=== PATIENT | female | born 1955 | race Caucasian/White ===

== ENCOUNTER → 2017-12-20 10:19 | Outpatient (CLI) | payer OTHER, SELFPAY ==
--- NOTE | 2017-12-20 10:20 | BI_ITS ---
MAMMOGRAPHY - BILATERAL SCREENING REASON FOR EXAM: Female, 62 years old. Routine annual screening examination. PERTINENT HISTORY: Mother with breast cancer. Remote right stereotactic breast biopsy and left excisional breast biopsy. TECHNIQUE: Digital bilateral breast luis miguel (3D mammographic acquisition) in the CC and MLO projections. 2-D mediolateral oblique (MLO) and craniocaudad (CC) views of both breasts were obtained. CAD: Full Field Digital Mammography with Computer Added Detection was performed. COMPARISON: Comparison is made with prior study dated December 06, 2016. FINDINGS: Breast Composition: There are scattered areas of fibroglandular density. There are no dominant masses or suspicious calcifications. A tissue marker is seen in the upper slightly medial aspect of the right breast. Stable 8.4 mm nodule at the biopsy site. Stable small benign-appearing bilateral axillary lymph nodes. No other significant abnormalities are identified. There has been no significant change since the prior study. BI/SCREENING MAMM (CAD), BILAT IMPRESSION: Stable bilateral screening mammogram. Yearly follow-up mammogram recommended. (A) ASSESSMENT CATEGORY: BIRADS Category 2: Benign. A letter regarding these results will be sent to the patient by the facility within 30 days. Approximately 10% of breast cancers are not detected by mammography. A normal mammogram should not delay biopsy of a clinically suspicious abnormality. [id number] Electronically Signed: Asaf Epstein MD at 12:36 EDT Tel [phone], Service support ,
== END ==
PROVIDERS: Family Provider Family Medicine; PCP Family Medicine; Referring Provider Obstetrics & Gynecology; Visit Provider Obstetrics & Gynecology
DX: Z12.31 Encounter for screening mammogram for malignant neoplasm of breast (principal)
CPT/HCPCS: 77063; 77067

== ENCOUNTER 2021-06-15 10:20 | Outpatient (CLI) | payer OTHER, SELFPAY ==
[2021-06-15 11:10] LABS: Microalbumin,Random Urine 17.6 mg/L (NO RANGE EST.); Microalbumin:Creatinine Ratio 6.1 mg/g CRE (<30 mg/g CRE)
[2021-06-15 11:23] LABS: Cholesterol 184 mg/dL (200); High Density Lipoprotein 41 mg/dL; Triglycerides 189 mg/dL; Very Low Density Lipoprotein 38 mg/dL (5-40)
== END 2021-06-15 23:59 | disposition home or self-care (01) ==
LOC: LAB 10:22
PROVIDERS: PCP Family Medicine; Referring Provider Physician Assistant; Visit Provider Physician Assistant
DX: E11.9 Type 2 diabetes mellitus without complications (principal)
CPT/HCPCS: 36415; 80061; 82043; 82570

== ENCOUNTER 2021-06-29 09:42 | Outpatient (CLI) | payer OTHER, SELFPAY ==
[2021-06-29 11:38] LABS: Potassium 3.1 mmol/L (3.5-5.1)
== END 2021-06-29 23:59 | disposition home or self-care (01) ==
LOC: LAB 09:43
PROVIDERS: PCP Family Medicine; Visit Provider Family Medicine
DX: E87.6 Hypokalemia (principal)
CPT/HCPCS: 36415; 84132

== ENCOUNTER 2021-07-20 11:05 | Day surgery (SDC) | payer OTHER, SELFPAY ==
--- NOTE | 2021-06-15 10:03 | EKG12_ITS ---
Test Reason : PREOP Blood Pressure : / mmHG Vent. Rate : 066 BPM Atrial Rate : 066 BPM P-R Int : 154 ms QRS Dur : 082 ms QT Int : 418 ms P-R-T Axes : 051 -06 058 degrees QTc Int : 438 ms Normal sinus rhythm Normal ECG Confirmed by KAUSHAL SORIANO, FATUMA ([id number]), editor farm journal GENARO BARON ([id number]) on 06/16/2021 10:43:22 AM Referred By: Brien Herrera Confirmed By:FATUMA EASLEY MD
[2021-06-15 10:46] LABS: Hematocrit 42.7 % (37-47); Hemoglobin 14.8 g/dL (12.0-15.0); Mean Corp Hgb Conc 34.7 g/dL (32-36); Mean Corpuscular Hgb 31.1 pg (27.0-32.0); Mean Corpuscular Volume 89.7 fL (81-99); Mean Platelet Vol. 8.9 fl (6.2-12.0); Platelet Count 316 K/mm3 (150-450); RBC Distribution Width CV 11.7 % (11.6-14.6); RBC Distribution Width SD 38.2 fl (35.1-43.9); Red Blood Count 4.76 M/mm3 (4.2-5.4)
[2021-06-15 11:17] LABS: Anion Gap 8 (5-15); BUN 12 mg/dL (7-18); BUN/Creat Ratio 11.8 RATIO (10-20); Calcium,Total 8.3 mg/dL (8.5-10.1); Chloride 99 mmol/L (98-107); Creatinine, Serum 1.02 mg/dL (0.55-1.02); EST Glomerular Filtration Rate 58 mL/min (>60); Est Glom Filt Rate - Afr Amer 70 mL/min (>60); Glucose 157 mg/dL (74-106); Potassium 3.3 mmol/L (3.5-5.1); Sodium Level 138 mmol/L (136-145)
[2021-06-15 11:27] LABS: Hemoglobin A1c 6.8 % (3.8-5.6)
[2021-06-15 11:32] LABS: Thyroid Stim Hormone (TSH) 0.83 uIU/mL (0.358-3.74)
[2021-07-14 12:38] LABS: Hematocrit 42.5 % (37-47); Hemoglobin 14.2 g/dL (12.0-15.0); Mean Corp Hgb Conc 33.4 g/dL (32-36); Mean Corpuscular Hgb 30.5 pg (27.0-32.0); Mean Corpuscular Volume 91.2 fL (81-99); Mean Platelet Vol. 9.2 fl (6.2-12.0); Platelet Count 297 K/mm3 (150-450); RBC Distribution Width CV 11.9 % (11.6-14.6); RBC Distribution Width SD 40.4 fl (35.1-43.9); Red Blood Count 4.66 M/mm3 (4.2-5.4); White Blood Count 8.7 K/mm3 (4.4-11.0)
[2021-07-14 12:53] LABS: Anion Gap 6 (5-15); BUN 14 mg/dL (7-18); BUN/Creat Ratio 13.1 RATIO (10-20); Calcium,Total 8.6 mg/dL (8.5-10.1); Chloride 100 mmol/L (98-107); Creatinine, Serum 1.07 mg/dL (0.55-1.02); EST Glomerular Filtration Rate 55 mL/min (>60); Est Glom Filt Rate - Afr Amer 66 mL/min (>60); Glucose 222 mg/dL (74-106); Potassium 3.8 mmol/L (3.5-5.1); Sodium Level 136 mmol/L (136-145)
[2021-07-14 14:07] LABS: Vitamin D,25 Hydroxy 74.6 ng/mL
[2021-07-20] VITALS (7 sets, daily range): BP systolic 100–126; BP diastolic 46–80; PULSE 66–71; RESP 16–17; TEMP 36.3–36.8; O2SAT 92–99; BMI 35.5
[2021-07-20] MEDS: Lactated Ringers 1,000 ML 15 ML IV (11:36)
[2021-07-20 11:46] LABS: Bedside Glucose 157 mg/dL (74-106)
[2021-07-20] MEDS: Clindamycin 600 MG/50 ML BAG 100 MG IV (12:15)
[2021-07-20] MEDS: Lidocaine 1% /Epi 1:100 (20ml) 20 ML Vial (13:24)
[2021-07-20] MEDS: Epinephrine (1 mg/ml) 1 MG/ML VIAL (13:24)
--- NOTE | 2021-07-20 14:20 | PCM.OPRPT ---
Report of Operation Date of Procedure: 07/20/21 Pre-Operative Diagnosis: Subacromial impingement syndrome, OA distal clavicle, rotator cuff tear, possible interstitial tear biceps tendon right shoulder Post-Operative Diagnosis: same with no biceps tendon tear Surgery/Procedure Performed:: Arthroscopic subacromial decompression, distal claviculectomy, RCR right shoulder Surgeon: Brien Herrera editorial director: Jamie Ibarra Type of Anesthesia: General/Regional Anesthesiologist: Arron Howell Admkatherine VTE Documentation VTE Present on Admission: No VTE Mechan Device Prophylaxis: SCD's VTE Pharm Prophylaxis ordered?: No Reason prophylaxis not ordered:: Treatment Not Indicated
[2021-07-20 14:55] LABS: Bedside Glucose 165 mg/dL (74-106)
== END 2021-07-20 16:38 | disposition home or self-care (01) ==
LOC: SDC 11:06 → AC 11:10
PROVIDERS: Anesthesiology; PCP Family Medicine; Referring Provider Orthopaedic Surgery; Visit Provider Orthopaedic Surgery
PROC: (CPT 29827; principal; 2021-07-20 12:25)
DX: M75.100 Unspecified rotator cuff tear or rupture of unspecified shoulder, not specified as traumatic (principal); E11.9 Type 2 diabetes mellitus without complications; M19.019 Primary osteoarthritis, unspecified shoulder; M75.41 Impingement syndrome of right shoulder; E78.00 Pure hypercholesterolemia, unspecified; I10 Essential (primary) hypertension; Z90.711 Acquired absence of uterus with remaining cervical stump; S46.011A Strain of muscle(s) and tendon(s) of the rotator cuff of right shoulder, initial encounter
CPT/HCPCS: 29824; 29826; 01630; 36415; 80048; 82306; 82962; 83036; 84443; 85027; 93005; J7120; J2405

== ENCOUNTER 2023-08-14 14:26 | Emergency (ER) | payer MEDICARE, OTHER, SELFPAY ==
[2023-08-14 14:27] VITALS: BP 150/99; PULSE 72; RESP 18; TEMP 36.3; O2SAT 94; BMI 35.6
[2023-08-14] MEDS: 0.9% Normal Saline (1000mL) 1,000 ML 1000 ML IV (14:51)
[2023-08-14 15:01] LABS: Absolute Lymphocyte Count 1.62 X10^3/uL (0.83-4.51); Absolute Neutrophil Count 4.5 X10^3/uL (2.0-7.7); Basophil# 0.05 X10^3/uL; Basophil% 0.7 % (0-1); Eosinophils% 4.1 % (0-5); Hematocrit 44.1 % (37-47); Lymphocyte # 1.62 X10^3/ul (0.83-4.51); Mean Corpuscular Hgb 29.4 pg (27.0-32.0); Mean Corpuscular Volume 86.3 fL (81-99); Mean Platelet Vol. 8.8 fl (6.2-12.0); Monocyte% 12.2 % (0-10); NRBC Flagged by Analyzer 0 % (0-5); Neutrophil # 4.48 X10^3/uL (2.7-7.7); Neutrophil % 60.7 % (47-70); Platelet Count 276 K/mm3 (150-450); RBC Distribution Width SD 38.1 fl (35.1-43.9); Red Blood Count 5.11 M/mm3 (4.2-5.4); White Blood Count 7.4 K/mm3 (4.4-11.0)
[2023-08-14 15:24] LABS: Anion Gap 11 (5-15); BUN 10 mg/dL (7-18); BUN/Creat Ratio 10.1 RATIO (10-20); Calcium,Total 8.4 mg/dL (8.5-10.1); Chloride 102 mmol/L (98-107); Creatinine, Serum 0.99 mg/dL (0.55-1.02); EST Glomerular Filtration Rate 59 mL/min (>60); Est Glom Filt Rate - Afr Amer 72 mL/min (>60); Estimated Creatinine Clearance 62.17 ml/min; Glucose 159 mg/dL (74-106); Lipase 65 U/L (13-75); Potassium 3.1 mmol/L (3.5-5.1); Sodium Level 137 mmol/L (136-145)
[2023-08-14] MEDS: Potassium Chloride Oral Tablet 20 MEQ 40 MEQ PO (15:39)
[2023-08-14 15:41] LABS: Bacteria 0 SEEN /hpf (None Seen); Mucous, Urine 0 SEEN /hpf (<or=2+); Red Blood Cells-Urine 0 SEEN /hpf (0-5)
[2023-08-14 15:42] LABS: Color, Urine Yellow (Yellow); Glucose, Dipstick Normal (Normal); Ketone-Dipstick Negative (Negative); Leukocyte Esterase-Dipstick 500 /ul (Negative); Nitrite-Dipstick Negative (Negative); Occult Blood-Urine Negative /ul (Negative); Protein-Dipstick 15 mg/dl (Negative); Specific Gravity, Urine 1.015 (1.002-1.030); Urine Bilirubin Dipstick Negative (Negative); Urine Clarity Clear (Clear); Urine Urobilinogen Normal (Normal)
[2023-08-14 15:51] LABS: Squamous Epithelial Cells - UA 0-5 SEEN /hpf (5-10); White Blood Cells 5-10 SEEN /hpf (0-5)
[2023-08-14 16:26] VITALS: BP 141/96; PULSE 57; RESP 18; TEMP 36.9; O2SAT 94
--- NOTE | 2023-08-14 16:44 | EDS_ITS ---
HPI HPI - GI History of Present Illness Chief Complaint: Nausea/Vomiting/Diarrhea Narrative Narrative: 67-year-old female presenting with nausea, vomiting, diarrhea. This started on Tuesday. Patient states she had some bad potato salad on Tuesday [facility] and noted before she could eat food at the [facility] on Tuesday she started to have nausea, vomiting, diarrhea. She has had a low-grade fever as high as 100.2. Denies black or bloody stools. She has crampy abdominal pain but nothing focal. She has been able to eat foods now for the last few days but she is concerned that she continues to have diarrhea. She was seen before the weekend diagnosed with a UTI and started on Keflex because she was having urinary symptoms. She states he is have resolved. Patient has not had any exotic travel or other exotic food. Denies sick contacts. [facility] Medical History Wears glasses Cancer Thyroid disease Diabetes Arthritis High cholesterol Migraine headache Dietary restriction History of IBS Non-smoker Leg cramps History of pain when walking History of stress test Hypertension Home Medications ?Medication ?Instructions ?Recorded ?Last Taken ?Type ascorbic acid (vitamin C) 500 mg 500 mg PO DAILY 06/10/21 Unknown History tablet,extended release (Vitamin C ER) cholecalciferol (vitamin D3) 50 50 mcg PO BID 06/10/21 Unknown History mcg (2,000 unit) capsule (Vitamin D3) glimepiride 2 mg tablet 2 mg PO DAILY 06/10/21 Unknown History levothyroxine 100 mcg tablet 100 mcg PO DAILY 06/10/21 07/20/21 History lkjovgtq-mee-jhslr ac 400 1 tab PO DAILY 06/10/21 Unknown History mcg-calcium carb 500 mg-vit K1 20 mcg tablet (Women's 50 Plus Daily Formula) sertraline 25 mg tablet 25 mg PO DAILY 06/10/21 Unknown History simvastatin 40 mg tablet 40 mg PO QHS 06/10/21 Unknown History valsartan 80 1 tab PO DAILY 06/10/21 Unknown History mg-hydrochlorothiazide 12.5 mg tablet potassium chloride 20 mEq 15 meq PO BID 07/13/21 Unknown History tablet,extended release(part/cryst) ondansetron 4 mg disintegrating 4 mg PO Q8H PRN PRN Nausea #20 tabs 08/14/23 Unknown Rx tablet Allergy/AdvReac Type Severity Reaction Status Date / Time lisinopril AdvReac COUGH Verified 07/20/21 11:24 metformin AdvReac Vomiting Verified 07/20/21 11:24 Surgical History Hx of breast surgery Hx of breast biopsy Hx of colonoscopy History of lobectomy of thyroid Hx of tonsillectomy History of partial hysterectomy Social History Smoking Status: Never smoker ROS ROS ED Constitutional Constitutional ED: Reports fever(s); Denies chills or sweats Eyes Eyes: Denies blurry vision or change in vision ENT ENT ED: Denies ear pain or sore throat Cardiovascular Cardiovascular: Denies chest pain, palpitations or racing heartbeat Respiratory/Chest Respiratory/Chest: Denies cough, dyspnea or sputum Gastrointestinal Gastrointestinal: Reports diarrhea, nausea and vomiting; Denies abdominal pain or constipation Genitourinary Genitourinary ED: Denies dysuria, hematuria or urinary frequency Musculoskeletal Musculoskeletal: Denies arthralgias, myalgias or neck pain Integumentary Denies abscess, Abrasions or rash Neurologic Neurologic: Denies headache(s), paresthesias or weakness Psychiatric Psychiatric: Denies anxiety, depression, suicidal ideation or suicidal thoughts Endocrine Endocrinology: Denies polydipsia or polyuria EXAM Physical Exam Const Vital Signs: 08/14/23 14:27 08/14/23 16:26 Temperature 97.4 F L 98.5 F Temperature Source Temporal Oral Pulse Rate 72 57 L Respiratory Rate 18 18 Blood Pressure 150/99 H 141/96 H Blood Pressure Mean 116 111 Pulse Ox 94 94 Oxygen Delivery Method Room Air Room Air Positive well nourished General Appearance ED: NAD; Negative for pallor HEENT Reports moist mucous membranes normocephalic and atraumatic Eyes PERRL and EOMs intact bilaterally Resp normal respiratory effort Cardio regular rate and regular rhythm GI non-tender, non-distended and no masses Back/Spine no CVA tenderness Neuro CN's II-XII intact bilaterally, moves all extremities and no sensory deficits noted Sensorium / Orientation: alert Motor Exam: strength 5/5 throughout Psych mental status grossly normal and thought process normal Skin no wounds General Skin Exam: Negative for jaundice or pallor MDM MDM MDM Narrative Medical decision making narrative: Patient presenting with continued diarrhea. She started with nausea and vomiting earlier this week and believes it was her eating bad potato salad. Symptoms started on Tuesday roughly 24 hours later. Patient had a fever of 100.2 Fahrenheit which is now resolved. Her nausea and vomiting has resolved and she has been eating plenty of food but still has continued diarrhea. She was seen in urgent care for UTI symptoms and started on Keflex and her urine culture came back as normal urogenital savi. Patient does not have any symptoms currently of UTI. Differential includes colitis, diverticulitis, UTI, pyelonephritis, dehydration, anemia, electro normalities. CBC was obtained to assess white blood cell count, hemoglobin and platelets. BMP to assess renal function, electrolytes, glucose. Urinalysis to assess for UTI. CBC is unremarkable. BMP shows GFR 59 creatinine 1.99 and BUN of 10. Patient was given IV fluids. Urinalysis shows 500 leukocyte esterase and 5-10 white blood cells with 0-5 squamous epithelial cells. Patient currently on Keflex for UTI. Potassium was low at 3.1 and she was orally repleted. I ordered stool studies but the patient was not able to have a bowel movement. Given that her lab work was normal I feel she is safe to be safely discharged. I gave her prescription for Zofran and a list of high potassium foods. Return precautions were discussed. Impression: 1. Diarrhea 2. Hypokalemia Lab Data Attestation: I reviewed the patient's lab results. Labs: Laboratory Results - last 24 hr 08/14/23 08/14/23 14:47 15:34 WBC 7.4 RBC 5.11 Hgb 15.0 Hct 44.1 MCV 86.3 MCH 29.4 MCHC 34.0 RDW Std Deviation 38.1 RDW Coeff of [place] 12.0 Plt Count 276 MPV 8.8 Immature Gran % (Auto) 0.300 Neut % (Auto) 60.7 Lymph % (Auto) 22.0 [place] % (Auto) 12.2 H Eos % (Auto) 4.1 Baso % (Auto) 0.7 Absolute Neuts (auto) 4.5 Absolute Lymphs (auto) 1.62 Nucleated RBC % 0 Sodium 137 Potassium 3.1 L Chloride 102 Carbon Dioxide 24.0 Anion Gap 11 BUN 10 Creatinine 0.99 Estim Creat Clear Calc 62.17 Est GFR (MDRD) Af Amer 72 Est GFR (MDRD) Non-Af 59 L BUN/Creatinine Ratio 10.1 Glucose 159 H Calcium 8.4 L Lipase 65 Urine Color Yellow Urine Clarity Clear Urine pH 6.0 Ur Specific [place] 1.015 Urine Protein 15 H Urine Glucose (UA) Normal Urine Ketones Negative Urine Occult Blood Negative Urine Nitrite Negative Urine Bilirubin Negative Urine Urobilinogen Normal Ur Leukocyte Esterase 500 H Urine RBC 0 SEEN Urine WBC 5-10 SEEN Ur Squamous Epith Cells 0-5 SEEN Urine Bacteria 0 SEEN Urine Mucus 0 SEEN Discharge Plan Triage Chief Complaint: Nausea/Vomiting/Diarrhea ED Provider: Maxi Vazquez Dx/Rx/DC Orders Instructions: ED Hypokalemia, ED Potassium-Rich Foods, ED Gastroenteritis, Viral (Adult) Prescriptions: New ondansetron 4 mg tablet,disintegrating 4 mg PO Q8H PRN PRN (Reason: Nausea) Qty: 20 0RF No Action simvastatin 40 mg Tablet 40 mg PO QHS glimepiride 2 mg Tablet 2 mg PO DAILY valsartan-hydrochlorothiazide 80-12.5 mg Tablet 1 tab PO DAILY levothyroxine 100 mcg Tablet 100 mcg PO DAILY sertraline 25 mg Tablet 25 mg PO DAILY ascorbic acid (vitamin C) [Vitamin C] 500 mg Tablet Extended Release 500 mg PO DAILY cholecalciferol (vitamin D3) [Vitamin D3] 50 mcg (2,000 unit) Capsule 50 mcg PO BID Women's 50 Plus Daily Formula 400 mcg-500 mg calcium-20 mcg Tablet 1 tab PO DAILY potassium chloride 20 mEq tablet,ER particles/crystals 15 meq PO BID Patient Comments: Take 1 tablet by mouth once daily. Stand Alone Forms: ED Work / School Excuse Primary Care Provider: Yordy Do Referrals: Yordy Do MD [Primary Care Provider] - Print Language: Latvian Disposition Disposition: Home, Self Care
[2023-08-14 17:03] VITALS: BP 138/74; PULSE 67; RESP 18; TEMP 36.1; O2SAT 99
== END 2023-08-14 17:04 | disposition home or self-care (01) ==
PROVIDERS: Emergency Provider Student in an Organized Health Care Education/Training Program; PCP Family Medicine; Visit Provider Student in an Organized Health Care Education/Training Program
DX: R19.7 Diarrhea, unspecified (principal); E11.9 Type 2 diabetes mellitus without complications; R11.2 Nausea with vomiting, unspecified; E87.6 Hypokalemia; E78.00 Pure hypercholesterolemia, unspecified; I10 Essential (primary) hypertension; Z79.84 Long term (current) use of oral hypoglycemic drugs; Z90.710 Acquired absence of both cervix and uterus
CPT/HCPCS: 80048; 81001; 83690; 85025; 96360; 96361; 99283; J7030; A4216

== ENCOUNTER 2024-09-28 10:30 | Outpatient (RCR) | payer OTHER, MEDICARE, SELFPAY ==
--- NOTE | 2024-08-31 06:44 | HP.OTEVAL_ITS ---
Patient's Visit Information Visit Information Visit Information: LUC HAZEL is a 68 year old F, referred to Occupational Therapy by Dr. Shashi Daugherty MD, with a diagnosis of right LF non displaced prox phal. Date of Evaluation: 08/30/24 Occupational Therapist: Georgiana Calderón, KEELY/Jose, CHT Subjective Subjective: This 68 year old female was seen for OT eval with dx of right nondisplaced fx of proximal phalanx right LF. pt states she suffered a fall while at work on June 22 2024. Pt states she went to ER and was placed in splint- follow up with Dr. Daugherty and placed in cast about June 24-2024. pt states she was in cast for 6 weeks and this was removed. Pt states she stared Physical therapy July 23 and did not make gains in her functional fist. pt states she is frustrated with her limited ability to use her right hand with all ADLs and IADLs. pt is right hand- pt would like to get more ROM and strength of right hand to use with all her ADLs. Pain right hand: Current Pain Intensity: 0 Pain Intensity Range: 4 ROM MP: right IF ROM Comments: right MCP IF 70 MF 60 RF 50 LF 40 Left MCP IF 90 MF 90 RF 80 LF 85 right PIP IF 90 MF 55 RF 50 LF 45 Left PIP IF 95 MF 95 RF 95 LF 95 right DIP IF 60 MF 20 RF 10 LF 0 Left DIP IF 60 MF 70 RF 70 LF 60 pt unable to form composite fist at this time. Strength Division Sales Manager: right 15# left 40# Lateral Pinch: right 4# left 6# Tripod Pinch: right unable left 4# Edema PIP: right MF 6.5 left 6.0 Sensation Sensation Comments: denies In-Hand Manipulation Finger to Palm Translation: Unable - Right and Normal - Left Palm to Finger Translation: Unable - Right and Normal - Left Goals Goal:: pt will demo a increase in right machine plug shaper strength to 40# or greater to increase pts IND with ADLs by d/c Goal:: pt will demo the ability to form a composite fist to hold objects of different size, coins and release IND to increase pts ind. with ADLs by d.c Goal:: pt will report no pain greater than 2/10 with use of right dominate hand with ADLS by d/c Goal:: pt will demo the ability to pickers material handlers 10 coins and hold without dropping by d.c Goal:: pt will demo a reduction in swelling by .5 cm Goal:: Pt will demo understanding of joint protection and ergonomics when p erforming BADLs and IADLs by d/c Pt will demo understanding of adaptive Equipment use to decrease stress on joints to allow pt to perform BADSL and IADLS at LEV level. Rehabilitation General Assessment: pt demo with limited right composite fist limiting use of right dominate hand with ADLs and IADL.s pt would benefit from skilled OT servic es 2-3 x week for 16 weeks to return pt to functional use of right hand. Today therapist added PROM. place and hold edema ( contrast bath)- pt was given handouts and demo understanding of POC and agree to POC. Rehabilitation Potential: Good Anticipated Interventions Anticipated Interventions: A/AAROM/PROM, Strengthening, Edema Control, Triggerpoint Release, Modalities, Orthoses, Joint Protection/Energy Conservation, Ergonomic Education, Education re assistive Equipment, Education re Diagnosis and Home Program Visit Plan Frequency: 2-3x /Week Duration: 2 Months TEXT: Thank you for the opportunity to evaluate your patient. For Medicare and Medicare HMO plans, please review the plan of care and approve it. It will need to be FAXED BACK to us at [phone] for Medicare purposes. Please let me know if there are questions or concerns regarding this plan of care. Physician Signature: Date:
--- NOTE | 2024-12-11 11:40 | HP.OT.NRP ---
Patient Information Patient Information: LUC HAZEL was seen in my office for initial evaluation on 08/30/24. The following Plan of Care was established for this patient: POC Established Initial Frequency: 2-3x /Week Initial Duration: 2 Months Plan: cont 2x week for 3 weeks 6 more visits Anticipated Interventions Anticipated Interventions: A/AAROM/PROM, Strengthening, Edema Control, Triggerpoint Release, Modalities, Orthoses, Joint Protection/Energy Conservation, Ergonomic Education, Education re assistive Equipment, Education re Diagnosis and Home Program Last Seen Last Seen: This patient was last seen in our office 09/28/24. Pertinent comments regarding their Occupational therapy will appear below: no further apts have been scheduled and due to time lapse in services pt is d/c at this time. At this point I will be discontinuing this patient from occupational therapy. I would be happy to see this patient again in the future if found appropriate by the physician. Thank you! Georgiana Calderón, OTR/L, CHT
== END 2024-09-28 19:00 | disposition home or self-care (01) ==
LOC: OT 10:30
PROVIDERS: PCP Family Medicine; Referring Provider Specialist; Visit Provider Specialist
DX: S62.646D Nondisplaced fracture of proximal phalanx of right little finger, subsequent encounter for fracture with routine healing (principal)
CPT/HCPCS: 97110; 97140; 97166; 97530

== ENCOUNTER → 2025-01-25 | Outpatient (CLI) | payer MEDICARE, OTHER, SELFPAY ==
--- NOTE | 2025-01-25 08:41 | EKG12_ITS ---
Test Reason : PREOP Blood Pressure : */* mmHG Vent. Rate : 57 BPM Atrial Rate : 57 BPM P-R Int : 144 ms QRS Dur : 82 ms QT Int : 438 ms P-R-T Axes : 26 4 51 degrees QTcB Int : 426 ms Sinus bradycardia Otherwise normal ECG When compared with ECG of 15-Jun-2021 10:10, No significant change was found Confirmed by Brien Alan ([id number]), editorial manager JANETTE MUELLER ([id number]) on 01/28/2025 1:08:35 PM Referred By: Shashi Daugherty Confirmed By: Brien Alan
== END | disposition home or self-care (01) ==
LOC: PSN 08:38
PROVIDERS: PCP Family Medicine; Referring Provider Specialist; Visit Provider Specialist
DX: Z01.810 Encounter for preprocedural cardiovascular examination (principal); Z01.818 Encounter for other preprocedural examination
CPT/HCPCS: 93005

== ENCOUNTER → 2025-02-05 | Outpatient (CLI) | payer MEDICARE, OTHER, SELFPAY ==
[2025-02-05 10:48] LABS: Hematocrit 41.6 % (37-47); Hemoglobin 14.0 g/dL (12.0-15.0); Immature Granulocytes Count 0.010 X10^3/uL (0.0-0.0); Mean Corp Hgb Conc 33.7 g/dL (32-36); Mean Corpuscular Volume 88.5 fL (81-99); Mean Platelet Vol. 9.1 fl (6.2-12.0); NRBC Flagged by Analyzer 0 % (0-5); Platelet Count 309 K/mm3 (150-450); RBC Distribution Width CV 12.3 % (11.6-14.6); RBC Distribution Width SD 39.7 fl (35.1-43.9); Red Blood Count 4.70 M/mm3 (4.2-5.4); White Blood Count 7.6 K/mm3 (4.4-11.0)
[2025-02-05 11:16] LABS: Albumin, Serum 4.3 g/dL (3.4-4.8); Anion Gap 12 (5-15); BUN 18 mg/dL (4-19); BUN/Creat Ratio 21.1 RATIO (10-20); Calcium,Total 9.3 mg/dL (7.6-11.0); Carbon Dioxide 25.4 mmol/L (21.0-32.0); Chloride 102 mmol/L (98-108); Glucose 130 mg/dL (70-99); Potassium 4.5 mmol/L (3.3-5.1)
== END | disposition home or self-care (01) ==
LOC: LAB 09:59
PROVIDERS: PCP Family Medicine; Referring Provider Specialist; Visit Provider Specialist
DX: Z01.818 Encounter for other preprocedural examination (principal)
CPT/HCPCS: 36415; 80048; 82040; 83036; 85025

== ENCOUNTER → 2025-02-06 | Outpatient (CLI) | payer MEDICARE, OTHER, SELFPAY ==
--- NOTE | 2025-02-06 16:11 | CT_ITS ---
PROCEDURE: EXTREMITY LOWER WITHOUT CONTRA 02/06/2025 REASON FOR EXAM: PRE OP TECHNIQUE: Procedure Code: CTELWO Modality: CT Procedure: EXTREMITY LOWER WITHOUT CONTRA Coronal and Sagittal reconstruction series were provided, left knee. CONTRAST: None One or more dose reduction techniques were used (e.g., Automated exposure control, adjustment of the mA and/or kV according to patient size, use of iterative reconstruction technique). RADIATION DOSE SUMMARY: DLP: 1070 mGycm COMPARISON: None FINDINGS: There is moderate to severe osteoarthritis in the medial compartment with subcortical cyst formation, joint space narrowing, and marginal osteophytes. There is no fracture or dislocation. There is no significant effusion or Teran's cyst. There is no soft tissue mass or adenopathy. Mineralization is normal. Atherosclerotic calcifications are noted.. Diverticulosis is visible in the pelvis. CT/Extremity Lower without Contra IMPRESSION: There is moderate to severe osteoarthritis in the medial compartment with subco rtical cyst formation, joint space narrowing, and marginal osteophytes. Reading Location: [facility]
== END | disposition home or self-care (01) ==
LOC: CT 16:10
PROVIDERS: PCP Family Medicine; Referring Provider Specialist; Visit Provider Specialist
DX: M17.12 Unilateral primary osteoarthritis, left knee (principal); M21.162 Varus deformity, not elsewhere classified, left knee
CPT/HCPCS: 73700

== ENCOUNTER 2025-02-27 10:00 | Outpatient (RCR) | payer OTHER, MEDICARE, SELFPAY ==
--- NOTE | 2025-01-17 07:35 | HP.OTEVAL ---
Patient's Visit Information Visit Information Visit Information: LUC HAZEL is a 69 year old F, referred to Occupational Therapy by Dr. Shashi Daugherty MD, with a diagnosis of non-displaced fx of proximal phalanx right LF. Date of Evaluation: 01/16/25 Occupational Therapist: Georgiana Calderón, KEELY/Jose, CHT Subjective Subjective: This 69 year old female was seen for OT eval with dx of right LF non displaced fx of proximal phalanx. June 22 2024 pt had a fall at work and due to swelling she went to Urgent care. Due to fx of right LF pt was in brace that included her LF and RF for about 6 weeks. pt has been seen in therapy in the past. pt has intensive HEP using contrast bath- while performing tendon gilds. massage to finger tips with finger massage pt is using silicon digi caps pt is right handed and struggling with forming a composite fist. pt states prior to her fall and hand fx she was able to make a full fist and use her right dominate hand with all daily tasks. pt would like to get a functional fist back to use her hand with daily and work tasks. Pain right hand: Current Pain Intensity: 6 Pain Intensity Range: 0 ROM PIP: right MF -10/40 RF -5/50 SF 0/40 DIP: right MF 0/40 RF 0/40 SF 0/10 ROM Comments: pt is 2.5 away from a fist Strength Supervisor Wool Shearing: right 15# left 50# Lateral Pinch: right 8# left 10# Tripod Pinch: right unable left 6# Edema PIP: right 6.4 left 6.2 Proximal Phalanx: right MF 6.5 left 6.0 Sensation Sensation Comments: denies Quick DASH-Disab of Arm,Shoulder& Hand Quick DASH Score: 46.6650 Goals Goal:: pt will demo a increase in right process owner strength by 15# or more to increase pts IND with ADLs and IADLs by d.c. Goal:: pt will demo a increase in right digit ROM by 40* or more to improve pts functional grasp on different size objects by d/c Goal:: pt will demo the ability to hold med and small objects in right hand without dropping them by d/c pt will demo IND with manipulation of fasteners by d/c Goal:: Pt will demo understanding of joint protection and ergonomics when performing BADLs and IADLs by d/c Pt will demo understanding of adaptive Equipment use to decrease stress on joints to allow pt to perform BADSL and IADLS at LEV level. Rehabilitation General Assessment: pt demo with joint stiffness following a right LF fx back in June. Pt struggling with return of functional grasp. Pt would benefit from skilled OT services 2-3 x week for 4-6 weeks to maximize pts rehab potential. Today therapist ustilized Paraffin prior to manual therapy todd. and we were able to gain 20* more in right LF PIP flexion and 5* more in right RF and MF ROM. Due to joint stiffness pt would benefit from a home paraffin unit to mtg. joint stiffness. Today therapist ed. pt on blocking and joint distraction with pro longed flexion stretch of right MCP and PIP of LF, RF and MF. Pt demo understanding and agree to POC. Rehabilitation Potential: Good Anticipated Interventions Anticipated Interventions: A/AAROM/PROM, Strengthening, Edema Control, Triggerpoint Release, Modalities, Orthoses, Joint Protection/Energy Conservation, Ergonomic Education, Fine Motor Coord/Memo, Education re assistive Equipment, Education re Diagnosis and Home Program Visit Plan Frequency: 2-3x /Week Duration: 6 Weeks General Plan: will discuss with pt on getting home paraffin unit to use daily if not 2 x a day to assist in improve soft tissue mobility to gain functional ROM. TEXT: Thank you for the opportunity to evaluate your patient. For Medicare and Medicare HMO plans, please review the plan of care and approve it. It will need to be FAXED BACK to us at [phone] for Medicare purposes. Please let me know if there are questions or concerns regarding this plan of care. Physician Signature: Date:
--- NOTE | 2025-02-27 13:51 | HP.OTDCSUM ---
Discharge Summary D/C Summary: It has been my pleasure to treat LUC HAZEL under orders from Dr. Shashi Daugherty MD, for the diagnosis of non-displaced fx of proximal phalanx right LF for a total of 14 visit(s). Please see the following information for a summary of their discharge status. Overall Improvement % Improvement: 0 Objective Objective/Function: pt continues to demo with hard end feel of multiple PIPJ on right hand- limiting functional use of her right dominate hand- pt is using heat- gloves along with AROM ex. to support loss of ROM PIP: right MF -10/45 RF -5/50 SF 0/45 DIP: right MF 055 RF 0/45 SF 0/10 ROM Comments: pt is 2.5 away from a fist Strength Medical Technologist Microbiology: right 15# left 50# Lateral Pinch: right 8# left 10# Tripod Pinch: right unable left 6# Goals Patient Goals: Regain Mobility, Regain Strength, Decrease Pain, Decrease Swelling/Stiffness, Improve Fine Motor Skills, Use Hand/Wrist/Arm Normally Again and Be More Independent in ADLS Goal:: pt will demo a increase in right home paraprofessional strength by 15# or more to increase pts IND with ADLs and IADLs by d.c. Goal:: pt will demo a increase in right digit ROM by 40* or more to improve pts functional grasp on different size objects by d/c Goal:: pt will demo the ability to hold med and small objects in right hand without dropping them by d/c pt will demo IND with manipulation of fasteners by d/c Goal:: Pt will demo understanding of joint protection and ergonomics when performing BADLs and IADLs by d/c Pt will demo understanding of adaptive Equipment use to decrease stress on joints to allow pt to perform BADSL and IADLS at LEV level. Plan Plan: pt working with rep. D/C Information Discharge Comments: pts goals were not met at this time. Pt to return to for further consultation on options to gain more ROM. pt with cont. with her Home program d/c sentence: If there are questions or concerns regarding this patient's occupational therapy, please fell free to call me at [phone]. Thank you for the referral of this patient. Sincerely, Georgiana Calderón, OTR/L, CHT
== END 2025-02-27 19:00 | disposition home or self-care (01) ==
LOC: OT 10:00
PROVIDERS: PCP Family Medicine; Referring Provider Specialist; Visit Provider Specialist
DX: S62.646D Nondisplaced fracture of proximal phalanx of right little finger, subsequent encounter for fracture with routine healing (principal)
CPT/HCPCS: 97110; 97140; 97166; 97530